=== PATIENT | male | born 1975 | race Caucasian/White ===

== ENCOUNTER 2022-07-25 00:41 | Emergency (ER) | payer BC ==
[2022-07-25] MEDS ORDERED: Sodium Chloride 0.9% 10 ML Syringe FLUSH PRN (01:15)
[2022-07-25] MEDS ORDERED: Ondansetron 4 MG/2 ML SDV IVPUSH ONE (01:15)
[2022-07-25] MEDS ORDERED: HYDROmorphone 1 MG/ML Syringe IVPUSH ONE (01:15)
[2022-07-25 01:49] LABS: PTT,PARTIAL THROMBOPLSTIN TIME 25.6 SEC (22.0-34.0)
[2022-07-25 01:52] LABS: ANION GAP 14.7 mEq/L (7-13); CHLORIDE,CL 100 mmol/L (98-107); SODIUM,NA 137 mmol/L (136-145)
[2022-07-25 01:54] LABS: ESTIMATED GFR 92 mL/min (>=60)
[2022-07-25] MEDS ORDERED: Iopamidol 612 MG/ML 100 ML Bottle IVPUSH ONE (02:09)
[2022-07-25] MEDS ORDERED: Ketorolac 30 MG/ML SDV IVPUSH ONE (05:01)
[2022-07-25] MEDS ORDERED: Tamsulosin 0.4 MG Cap.ER PO ONE (05:01)
== END 2022-07-25 05:18 | disposition home or self-care (01) ==
LOC: DL.ED 00:41
DX: N13.2 Hydronephrosis with renal and ureteral calculous obstruction (principal); I10 Essential (primary) hypertension; J45.909 Unspecified asthma, uncomplicated; Z88.1 Allergy status to other antibiotic agents; Z72.0 Tobacco use
CPT/HCPCS: 36415; 74177; 80053; 81001; 82150; 83605; 83690; 84145; 84484; 85025; 85610; 85730; 86140; 96374; 96375; 99284; A9270; J1170; J1885; J2405; Q9967; J3490

== ENCOUNTER 2024-12-28 19:56 | Emergency (ER) | payer BC ==
[2024-12-28] MEDS: Take Home: Amoxicillin/Clavulanate K 875-125 MG Tab, 6 Tab Pack PO ONE (20:45)
== END 2024-12-28 20:58 | disposition home or self-care (01) ==
LOC: DL.ED 19:56
DX: S61.452A Open bite of left hand, initial encounter (principal); I10 Essential (primary) hypertension; Z88.1 Allergy status to other antibiotic agents; Z79.899 Other long term (current) drug therapy; W54.0XXA Bitten by dog, initial encounter; Y93.K1 Activity, walking an animal
CPT/HCPCS: 12002; 99283; A9270; J2003